=== PATIENT | female | born 1995 | race American Indian/Alaskan Native ===

== ENCOUNTER 2021-07-25 12:47 | Emergency (ER) | payer SELFPAY ==
[2021-07-25 13:33] VITALS: BP 140/84
== END 2021-07-25 16:15 | disposition left against medical advice (07) ==
LOC: ED 12:47
DX: R05.9 Cough, unspecified (principal); Z53.21 Procedure and treatment not carried out due to patient leaving prior to being seen by health care provider

== ENCOUNTER 2021-12-18 19:09 | Emergency (ER) | payer SELFPAY ==
[2021-12-18 20:34] LABS: Mucus,Urine 2+ /HPF
[2021-12-18 20:35] LABS: RBC,Urine > 182.0 /HPF (0.0-6.0)
[2021-12-18 20:38] LABS: Color,Urine Amber (Yellow)
[2021-12-18 20:39] LABS: HCG Qualitative,Urine Negative (Negative)
--- NOTE | 2021-12-18 22:28 | Emergency Department Report ---
ED Female HPI - General Chief complaint: Urogenital-Female Stated complaint: VAGINA DISCOMFORT Time Seen by Provider: 12/18/21 22:11 Source: patient Mode of arrival: Ambulatory Limitations: No Limitations - History of Present Illness Initial comments: Patient is a 26-year-old female presents to the emergency department with complaints of "vaginal swelling. She states that she thinks she has swelling all of her vagina. She states that she noticed the symptoms after wearing some tight shorts. She states she has had no smell and no vaginal discharge. She states she has had pain with urination. She states she is currently on her menstrual cycle. Patient denies history of any STDs. - Related Data Previous Rx's Medication Instructions Recorded Last Taken Type Sulfamethoxazole/Trimethoprim 1 each PO BID 3 Days #6 tab 12/18/21 Unknown Rx [Bactrim DS TAB] Valacyclovir HCl [Valacyclovir] 1,000 mg PO BID 14 Days #14 tab 12/18/21 Unknown Rx Allergies Allergy/AdvReac Type Severity Reaction Status Date / Time Penicillins Allergy Swelling Verified 07/25/21 13:31 ED Review of Systems ROS: Stated complaint: VAGINA DISCOMFORT Other details as noted in HPI Constitutional: denies: chills, fever Eyes: denies: eye pain, eye discharge, vision change ENT: denies: ear pain, throat pain Respiratory: denies: cough, shortness of breath, wheezing Cardiovascular: denies: chest pain, palpitations Endocrine: no symptoms reported Gastrointestinal: denies: abdominal pain, nausea, diarrhea Genitourinary: dysuria, frequency. denies: urgency, hematuria, discharge Musculoskeletal: denies: back pain, joint swelling, arthralgia Skin: denies: rash, lesions Neurological: denies: headache, weakness, paresthesias Psychiatric: denies: anxiety, depression Hematological/Lymphatic: denies: easy bleeding, easy bruising ED Past Medical Hx - Medications Home Medications: Home Medications Medication Instructions Recorded Confirmed Last Taken Type Sulfamethoxazole/Trimethoprim 1 each PO BID 3 Days #6 tab 12/18/21 Unknown Rx [Bactrim DS TAB] Valacyclovir HCl [Valacyclovir] 1,000 mg PO BID 14 Days #14 tab 12/18/21 Unknown Rx ED Physical Exam - General Limitations: No Limitations General appearance: alert, in no apparent distress - Head Head exam: Present: atraumatic, normocephalic - Eye Eye exam: Present: normal appearance - ENT ENT exam: Present: mucous membranes moist - Neck Neck exam: Present: normal inspection - Respiratory Respiratory exam: Present: normal lung sounds bilaterally. Absent: respiratory distress - Cardiovascular Cardiovascular Exam: Present: regular rate, normal rhythm. Absent: systolic murmur, diastolic murmur, rubs, gallop - GI/Abdominal GI/Abdominal exam: Present: soft, normal bowel sounds - Rectal Rectal exam: Present: deferred - External exam: Present: lesions (there is no abscess, there are multiple lesions at the posterior and R lateral aspect of the vulva, there is no significant tenderness) - Extremities Exam Extremities exam: Present: normal inspection - Back Exam Back exam: Present: normal inspection - Neurological Exam Neurological exam: Present: alert, oriented X3 - Psychiatric Psychiatric exam: Present: normal affect, normal mood - Skin Skin exam: Present: warm, dry, intact, normal color. Absent: rash ED Course Vital Signs 12/18/21 19:22 Temperature 99.1 F Pulse Rate 101 H Respiratory 18 Rate Blood Pressure 151/94 O2 Sat by Pulse 99 Oximetry ED Medical Decision Making - Medical Decision Making Patient is a 26-year-old female presents emergency department complaint of vaginal swelling and dysuria. Patient's labs are notable for white blood cells consistent with a urinary tract infection and exam is concerning for genital herpes. Given that this is her first outbreak plan for 1 week of valacyclovir and patient should go to an outpatient facility such as health department primary care [facility] for further STD testing and/or confirmation of genital herpes. Critical care attestation.: If time is entered above; I have spent that time in minutes in the direct care of this critically ill patient, excluding procedure time. ED Disposition Clinical Impression: UTI (urinary tract infection), Lesion of genitalia Disposition: HOME / SELF CARE / HOMELESS Is pt being admited?: No Does the pt Need Aspirin: No Condition: Stable Instructions: Urinary Tract Infection, Adult, Genital Herpes Additional Instructions: You may go to the health department for further STD testing. You can also go to primary care or an [facility]. These doctors have been listed on your paperwork. Prescriptions: Sulfamethoxazole/Trimethoprim [Bactrim DS TAB] 1 each PO BID 3 Days #6 tab Valacyclovir HCl [Valacyclovir] 1,000 mg PO BID 14 Days #14 tab Referrals: JOSE RAMON AMEZCUA MD [Staff Physician] - 7-10 days (This is a primary care doctor. They may do testing for genital herpes and/or other stds.) JOJO CARDOSO MD [Staff Physician] - 7-10 days (This is an [facility]. They may do testing for genital herpes and/or other stds.) Time of Disposition: 22:29 Print Language: YORUBA
[2021-12-18 23:51] VITALS: BP 134/87
== END 2021-12-18 23:51 | disposition home or self-care (01) ==
LOC: ED 19:09
DX: N39.0 Urinary tract infection, site not specified (principal); N89.8 Other specified noninflammatory disorders of vagina; Z88.0 Allergy status to penicillin
CPT/HCPCS: 81001; 81025; 87086; 99283